=== PATIENT | male | born 1945 | race Caucasian/White ===

== ENCOUNTER 2018-06-04 13:03 | Observation (INO) | payer BC ==
[~2018-06-04] VITALS: Ht 177.8 cm; Wt 99.8 kg
[~2018-06-04 13:03] MED LIST: DIGEST GOLD PO; EYE SUPPORT PO; HYALURONIC ACID PO; L-ARGININE PO; LIPOIC ACID PO; MAGNESIUM PO; MULTIVITAMINS1 EAC6 PO; RAW PROBIOTIC PO; STRESS B-COMPL1 EACH PO; SUPER BETA PROSTATE PO; UBIQUINOL PO; VIT D PO; VIT E PO; ZINC PICOLINATE PO; [UNRECOGNIZED DRUG - CODE] PO; [UNRECOGNIZED DRUG - OTHER] PO; [UNRECOGNIZED DRUG - OTHER] PO; [UNRECOGNIZED DRUG - OTHER] PO; [UNRECOGNIZED DRUG - OTHER] PO; [UNRECOGNIZED DRUG - OTHER] PO; [UNRECOGNIZED DRUG - OTHER] PO
[2018-06-04] MEDS ORDERED: SODIUM CHLORIDE 0.9% 1000ML 1,000 ML IV STA (13:19)
[2018-06-04] MEDS ORDERED: ASPIRIN 81 MG CHEW TAB PO ONE (13:30)
[2018-06-04 13:50] LABS: BASOPHILS # (AUTO) 0.1 (0.0-0.1); BASOPHILS % 0.7 % (0.0-1.0); EOSINOPHILS # (AUTO) 0.1 (0.0-0.4); EOSINOPHILS % 1.9 % (0.0-6.0); HEMATOCRIT 46.3 % (38.2-49.6); HEMOGLOBIN 15.4 g/dL (14.0-18.0); LYMPHOCYTES # (AUTO) 1.9 (1.0-3.2); LYMPHOCYTES % 25.1 % (18.0-39.1); MEAN CORPUSCULAR HEMOGLOBIN 32.5 pg (28-32); MEAN CORPUSCULAR HGB CONC 33.3 g/dL (31-35); MEAN CORPUSCULAR VOLUME 97.7 fL (81-99); MONOCYTES # (AUTO) 0.9 (0.2-0.8); MONOCYTES % 11.8 % (4.4-11.3); NEUTROPHILS # (AUTO) 4.5 (2.1-6.9); NEUTROPHILS % 60.1 % (38.7-80.0); PLATELET COUNT 226 x10e3/uL (140-360); RED BLOOD COUNT 4.74 x10e6/uL (4.3-5.7); RED CELL DISTRIBUTION WIDTH 13.1 % (11.7-14.4)
[2018-06-04 13:54] LABS: INR 1.03; PROTHROMBIN TIME 12.7 seconds (11.9-14.5)
[2018-06-04 13:55] LABS: PARTIAL THROMBOPLASTIN TIME 27.6 seconds (23.8-35.5)
[2018-06-04 14:05] LABS: ALANINE AMINOTRANSFERASE 29 IU/L (0-55); ALBUMIN 3.5 g/dL (3.5-5.0); ALKALINE PHOSPHATASE 61 IU/L (40-150); ANION GAP 14.9 mmol/L (8-16); BLOOD UREA NITROGEN 22 mg/dL (7-26); BUN/CREATININE RATIO 20 (6-25); CALCIUM 9.3 mg/dL (8.4-10.2); CARBON DIOXIDE 25 mmol/L (22-29); CHLORIDE 103 mmol/L (98-107); CREATINE KINASE 69 IU/L (30-200); CREATININE, SERUM 1.09 mg/dL (0.72-1.25); EST GLOMERULAR FILTRATION RATE > 60 ML/MIN (60-); GLUCOSE 124 mg/dL (74-118); POTASSIUM 3.9 mmol/L (3.5-5.1); SODIUM 139 mmol/L (136-145)
[2018-06-04 14:24] LABS: THYROID STIMULATING HORMONE 4.837 uIU/mL (0.350-4.940)
--- NOTE | 2018-06-04 14:44 | Diagnostic Imaging Report ---
EXAM: XR CHEST 1 VIEW DATE: 06/04/2018 1:41 PM INDICATION: Weakness COMPARISON: None FINDINGS: Lines and Tubes: None Heart and Mediastinum: Heart prominent. Lungs and Pleura: Mild interstitial prominence. No pneumothorax or focal consolidation. Bones and Soft Tissues: No acute findings. IMPRESSION: 1. Mild prominence of the interstitium could represent atelectasis, edema, or infectious process. Signed by: Dr. Gerry Ghotra MD on 06/04/2018 2:41 PM
--- NOTE | 2018-06-04 14:45 | Diagnostic Imaging Report ---
Exam: Head CT without contrast History: Weakness, dizziness, new onset AFIB Comparison studies: None Technique: Axial images were obtained from the skull base to the vertex. Coronal and sagittal images reconstructed from the axial data. Radiation dose: Total DLP: 921 mGy*cm. Estimated effective dose: DLP x 0.015 Intravenous contrast: None Findings: Scalp: No abnormalities. Bones: No fractures, blastic or lytic lesions. Brain sulci: Appropriate for age. Ventricles: Mild compensatory dilatation. No hydrocephalus. Extra-axial spaces: No masses, no fluid collection. Parenchyma: No mass, acute hemorrhage or acute or chronic cortical vascular insults. A few scattered hypodensities in the supratentorial white matter are nonspecific but most compatible with chronic microvascular ischemic changes. Sellar/suprasellar region: No abnormalities. Craniocervical junction: Patent foramen magnum. No Chiari one malformation. Incidental findings: Atherosclerotic calcifications in the carotid siphons. IMPRESSION: No acute abnormalities. Chronic findings: 1. Mild generalized volume loss. 2. Mild microvascular ischemic changes. Signed by: Dr. Greyson Olmos M.D. on 06/04/2018 2:42 PM
[2018-06-04] MEDS ORDERED: ENOXAPARIN SODIUM INJ 100 MG/ML SYR SC SCH ×2 (15:00→16:00)
--- NOTE | 2018-06-04 15:12 | Diagnostic Imaging Report ---
EXAM: CTA Chest WITH contrast / Pulmonary Embolus Study INDICATION: COMPARISON: None. TECHNIQUE: Angiogram of the chest was obtained using a multidetector helical scanner after administration of IV contrast. Coronal and sagittal reformations were obtained. Pulmonary embolus protocol. IV CONTRAST: 100 mL Isovue-370 COMPLICATIONS: None RADIATION DOSE: Total DLP: 670 mGy*cm Estimated effective dose: (DLP x 0.015 x size factor) mSv CTDIvol has been reviewed. It is below the limits set by the Radiation Protocol Committee (RPC). FINDINGS: Lines and Tubes: None. Lower Neck: The visualized thyroid gland is grossly unremarkable with no suspicious or significant nodule identified. Heart and Great Vessels: The aorta and main pulmonary artery measure 44 and 33 mm. respectively. Segmental and subsegmental pulmonary emboli present in the left upper lobe. Probable subsegmental lower lobe emboli present; however, motion limits evaluation. Clot burden is overall small. RV/LV ratio over 0.9. No pericardial effusion present. Lymph Nodes: 21 x 17 mm level 5, 17 x 9 mm right level 4, 19 x 10 mm right level 11, 15 x 11 mm left level 11. Lungs: Mild biapical scarring. No pneumothorax. Dependent opacities present in the lung bases, predominantly linear suggesting atelectasis. Mild septal thickening. Trachea and central bronchi are unremarkable. Upper abdomen: Small to moderate hiatal hernia. Decreased attenuation of liver suggesting steatosis. Bones and Soft Tissues: Degenerative changes spine. IMPRESSION: 1. Peripheral pulmonary emboli, most notably left upper lobe. Clot burden is small; however, there is some CT evidence of right heart strain. 2. Hepatic steatosis. 3. Moderate hiatal hernia. 4. Mild adenopathy, nonspecific. 5. Mild edema. Signed by: Dr. Gerry Ghotra MD on 06/04/2018 3:09 PM
[2018-06-04] MEDS ORDERED: FAMOTIDINE 20 MG TAB PO SCH (16:00)
[2018-06-04] MEDS ORDERED: ONDANSETRON HCL INJ 2 MG/ML VIAL IV PRN (16:00)
[2018-06-04 17:08] LABS: BILIRUBIN,URINE NEGATIVE (NEGATIVE); CLARITY,URINE CLEAR (CLEAR); COLOR,URINE STRAW (YELLOW); KETONES,URINE NEGATIVE (NEGATIVE); LEUKOCYTE ESTERASE ,URINE NEGATIVE (NEGATIVE); NITRITE,URINE NEGATIVE (NEGATIVE); PROTEIN,URINE DIPSTICK NEGATIVE (NEGATIVE); URINE UROBILINOGEN 0.2 mg/dL (0.2 - 1)
[2018-06-04 17:10] LABS: EPITHELIAL CELLS,URINE RARE /LPF
[2018-06-04 17:14] LABS: RBC,URINE 0-5 /HPF (0-5)
[2018-06-04] MEDS ORDERED: SODIUM CHLORIDE 0.9% 50ML 50 ML ONE (17:44)
[2018-06-04] MEDS ORDERED: IOPAMIDOL 370 MG/ML 200 ML INFUS..BTL INJ ONE (17:45)
[2018-06-04 19:27] LABS: CREATINE KINASE MB 2.1 ng/mL (0-5.0)
[2018-06-05] MEDS ORDERED: SODIUM CHLORIDE 0.9% 250ML 250 ML ONE (00:23)
[2018-06-05 06:13] LABS: BASOPHILS % 0.3 % (0.0-1.0); EOSINOPHILS # (AUTO) 0.2 (0.0-0.4); EOSINOPHILS % 2.7 % (0.0-6.0); HEMATOCRIT 40.3 % (38.2-49.6); HEMOGLOBIN 13.6 g/dL (14.0-18.0); LYMPHOCYTES # (AUTO) 1.7 (1.0-3.2); LYMPHOCYTES % 28.6 % (18.0-39.1); MEAN CORPUSCULAR HGB CONC 33.7 g/dL (31-35); MEAN CORPUSCULAR VOLUME 97.8 fL (81-99); MONOCYTES # (AUTO) 0.6 (0.2-0.8); MONOCYTES % 10.1 % (4.4-11.3); NEUTROPHILS # (AUTO) 3.4 (2.1-6.9); PLATELET COUNT 207 x10e3/uL (140-360); RED BLOOD COUNT 4.12 x10e6/uL (4.3-5.7); RED CELL DISTRIBUTION WIDTH 13.2 % (11.7-14.4)
[2018-06-05 06:26] LABS: CREATINE KINASE 39 IU/L (30-200)
[2018-06-05 06:30] LABS: ANION GAP 14.9 mmol/L (8-16); BLOOD UREA NITROGEN 16 mg/dL (7-26); BUN/CREATININE RATIO 16 (6-25); CALCIUM 8.8 mg/dL (8.4-10.2); CARBON DIOXIDE 22 mmol/L (22-29); CHLORIDE 102 mmol/L (98-107); CHOL/HDL RATIO 3.4 (3.9-4.7); CHOLESTEROL 220 MD/DL (0-199); CREATININE, SERUM 0.97 mg/dL (0.72-1.25); EST GLOMERULAR FILTRATION RATE > 60 ML/MIN (60-); GLUCOSE 150 mg/dL (74-118); HDL CHOLESTEROL 65 MG/DL (40-60); LDL CHOLESTEROL 119 MG/DL (60-130); POTASSIUM 3.9 mmol/L (3.5-5.1); SODIUM 135 mmol/L (136-145); TRIGLYCERIDES 179 MG/DL (0-149)
[2018-06-05 06:35] LABS: INR 1.09; PROTHROMBIN TIME 13.3 seconds (11.9-14.5)
[2018-06-05 06:36] LABS: PARTIAL THROMBOPLASTIN TIME 34.1 seconds (23.8-35.5)
[2018-06-05 06:49] LABS: CREATINE KINASE MB 1.8 ng/mL (0-5.0)
[2018-06-05] MEDS ORDERED: ENOXAPARIN SODIUM INJ 100 MG/ML SYR SC SCH (09:00)
[2018-06-05] MEDS: FAMOTIDINE 20 MG TAB PO SCH ×2 (09:23→20:13)
[2018-06-05 13:50] VITALS: BP 144/83
[2018-06-05 14:00] VITALS: BP 144/83
[2018-06-05 16:00] VITALS: BP 125/68
--- NOTE | 2018-06-05 17:58 | History and Physical ---
HISTORY OF PRESENT ILLNESS: A 72-year-old male who has no past medical history except for pneumonia in the past. The patient felt faint. He never lost consciousness. Patient was found to have a new onset atrial fibrillation, bilateral pulmonary embolism. CT of the head showed nonspecific abnormalities. Patient was admitted to the hospital with diagnosis of bilateral pulmonary embolism and new onset atrial fibrillation. REVIEW OF SYSTEMS: CARDIOVASCULAR: He denies chest pain or palpitation. RESPIRATORY: No shortness of breath. No cough. GASTROINTESTINAL: No nausea, no vomiting and no diarrhea. GENITOURINARY: No frequency and no dysuria. ALLERGIES: HE IS ALLERGIC TO DILAUDID, IBUPROFEN AND NON-STEROIDAL ANTIINFLAMMATORY DRUGS. SOCIAL HISTORY: He does not smoke. He does not drink. PAST MEDICAL HISTORY: Positive for pneumonia. PHYSICAL EXAMINATION: HEART: Irregularly, irregular heart rate with no murmur and no extra sounds. LUNGS: Clear bilaterally. ABDOMEN: Soft. EXTREMITIES: Show no evidence of cyanosis, edema or trauma. The CT of the chest showed bilateral pulmonary embolism. CT of the head showed no significant abnormalities except atrophy. EKG showed atrial fibrillation with nonspecific changes, right bundle branch block. FINAL IMPRESSION: 1. Near syncopal episode. 2. Pulmonary embolism. 3. Chronic atrial fibrillation. PLAN OF TREATMENT: We are going to switch him from Lovenox to Xarelto 15 mg twice a day. Going to get a cardiology consult with Dr. Mendez because of new onset atrial fibrillation. So far the heart rate has been in the 60s and 70s. So we do not need any beta franklyn or calcium channel franklyn right now. Patient remains on telemetry. On the BMP sodium 135, potassium 3.9, chloride 102. CO2 22. BUN 16. Creatinine 0.87. Glucose 115. On the CBC, white blood count 5.83, hemoglobin 13.6, hematocrit 40.3, platelet count 207,000. PT 13.3. INR 1.09. PTT 34.1. AST 22. ALT 29. Total bilirubin 0.5. Alkaline phosphatase 61. So we are going to also order an echocardiogram and TSH also. Job#: [id number]
--- NOTE | 2018-06-05 18:15 | Consultation ---
DATE OF CONSULTATION: June 05, 2018 CARDIOLOGY CONSULTATION REQUESTING PHYSICIAN: Dr. Marino. REASON FOR CONSULTATION: Atrial fibrillation. HISTORY OF PRESENT ILLNESS: This is a 72-year-old man with history of pneumonia, who present with complaints of lightheadedness. He reports he was in his usual state of health and sitting in [employer] when he began to feel lightheaded. This was associated with diaphoresis and nausea. He denied any palpitations, shortness of breath or chest pain. He denied any loss of consciousness. EMS was called and found him to be in atrial fibrillation, for which he was transported to the ER for further evaluation. REVIEW OF SYSTEMS: Negative except as per HPI. PAST MEDICAL HISTORY: Pneumonia. PAST SURGICAL HISTORY 1. Hernia repair. 2. Appendectomy. SOCIAL HISTORY: No tobacco, alcohol or illicit drugs. FAMILY HISTORY: Denies. ALLERGIES: PLEASE SEE EMR. MEDICATIONS: Please see medication list. PHYSICAL EXAMINATION VITAL SIGNS: Reviewed. GENERAL: A well-developed, well-nourished man in no acute distress. Awake and alert. HEENT: Normocephalic, atraumatic. Pupils equal, no scleral icterus. NECK: Supple. No thyromegaly or cervical lymphadenopathy, no carotid bruits. LUNGS: Clear to auscultation bilaterally. No wheezes or crackles. CARDIOVASCULAR: Normal rate, regular rhythm. No murmur. Normal S1 and S2. ABDOMEN: Soft, nontender. EXTREMITIES: No edema. NEURO: Nonfocal exam. LABS: Reviewed. ELECTROCARDIOGRAM: Atrial fibrillation with incomplete right bundle branch block. TELEMETRY: Normal sinus rhythm. IMPRESSION 1. Acute pulmonary embolism. 2. Paroxysmal atrial fibrillation. RECOMMENDATIONS: Agree with initiation of Xarelto for anticoagulation. Monitor patient on telemetry. Patient's CHADS-VASc score is 1. We will discuss whether to continue anticoagulation versus decrease to aspirin for CVA prophylaxis after anticoagulation for pulmonary embolism is complete in 6 months. Thank you for this consult. We will continue to follow. Job#: [id number] LUISA
[2018-06-05] MEDS: RIVAROXABAN 15 MG TABLET PO SCH (20:14)
[2018-06-05 20:56] VITALS: BP 137/80
[2018-06-06 00:03] VITALS: BP 128/84
[2018-06-06 05:35] VITALS: BP 128/84
[2018-06-06 08:00] VITALS: BP 157/74
[2018-06-06] MEDS: RIVAROXABAN 15 MG TABLET PO SCH (09:00)
[2018-06-06] MEDS ORDERED: MULTIVITAMINS/MINERALS TAB PO SCH (09:00)
[2018-06-06] MEDS: FAMOTIDINE 20 MG TAB PO SCH (09:00)
[2018-06-06 12:00] VITALS: BP 135/83
--- NOTE | 2018-06-06 13:37 | Discharge Summary ---
The patient is a 72-year-old male who claimed he has no past medical history except for pneumonia in the past. He fell. He was about to faint, but never lost consciousness. He came to the emergency room. He was found to have new onset atrial fibrillation and bilateral pulmonary embolism. Patient was started on Xarelto twice a day. Patient was seen by Dr. Guzman of cardiology who recommended the patient can go home today on Xarelto. On physical exam, the blood pressure is 157/74, temperature 97.7, heart rate 70 per minute, respiratory rate 19 per minute. Oxygen saturation 96%. On physical exam the heart shows regularly irregular heart rate, normal S1 and S2 sounds. Lungs are clear bilaterally. Abdomen is soft. On the blood work, we have BMP with sodium 135, potassium 3.9, chloride 102. CO2 22, BUN 16, creatinine 0.97, glucose 150. On the CBC, white blood count 5.83, hemoglobin 13.6, hematocrit 40.3, platelet count 207,000. PT 13.3, INR 1.09, PTT 34.1. AST 22, ALT 29, total bilirubin 0.5, alkaline phosphatase 61. FINAL IMPRESSION 1. Bilateral pulmonary embolism. 2. New onset atrial fibrillation. PLAN OF TREATMENT: Patient is going to be on Xarelto 15 mg twice a day for 3 weeks, and then he is going to switch to Xarelto 20 mg once a day. Heart rate is under control right now. Patient will follow up in a week and will follow up with Dr. Guzman, estate manager, also in a couple of weeks. Patient was told to abstain from any dangerous activities, from climbing or anything that can put the patient in danger since he is taking a blood thinner and to report any type of bleeding. He is going to be followed up by me and Dr. Guzman, estate manager, in a week. GIANNA BOSTON MD Job#: [id number]
--- NOTE | 2018-06-07 10:35 | Progress Note ---
DATE: June 06, 2018 CARDIOLOGY PROGRESS NOTE SUBJECTIVE: Patient denies chest pain or shortness of breath. OBJECTIVE VITAL SIGNS: Temperature 97.7 degrees, pulse 70, respiratory rate 19, blood pressure 157/74, oxygen saturation 96% on room air. GENERAL: Awake, alert, in no acute distress. LUNGS: Clear to auscultation bilaterally. No wheezes or crackles. CARDIOVASCULAR: Normal rate, regular rhythm. No murmur. Normal S1 and S2. ABDOMEN: Soft, nontender. EXTREMITIES: No edema. ELECTROCARDIOGRAM: Normal sinus rhythm. CARDIAC MEDICATIONS: Xarelto 15 mg p.o. b.i.d. LABS: None today. TELEMETRY: Normal sinus rhythm. IMPRESSION 1. Acute pulmonary embolism. 2. Paroxysmal atrial fibrillation. RECOMMENDATIONS: Patient is tolerating Xarelto. A starter pack was provided to patient. Please have patient follow up with us in the office in 2 weeks. He will also need campus monitor as an outpatient to evaluate his adequacy of his rate control. Continue current cardiac medications. Thank you for this consult. We will continue to follow. Job#: [id number] EV MTDD
== END 2018-06-06 13:18 | disposition home or self-care (01) ==
LOC: ER 13:03 → ERHOLD 15:53 → MED/SURG2 06-05 14:04
PROVIDERS: ADMIT Internal Medicine; ATTEND Internal Medicine
DX: I26.99 Other pulmonary embolism without acute cor pulmonale (principal); I48.0 Paroxysmal atrial fibrillation; R55 Syncope and collapse; Z88.6 Allergy status to analgesic agent; Z88.5 Allergy status to narcotic agent; Z88.8 Allergy status to other drugs, medicaments and biological substances; Z87.01 Personal history of pneumonia (recurrent)
CPT/HCPCS: 36415 ×2; 70450; 71045; 71260; 80048; 80053; 80061; 81001; 82550 ×2; 82553 ×2; 83735; 83880; 84443; 84484 ×2; 85025 ×2; 85379; 85610 ×2; 85730 ×2; 87086; 93005; 97116; 97161; 99284; G0378 ×3; G8978; G8979; G8980; J1650 ×2; J7030; J7050; Q9967